=== PATIENT | female | born 1970 | race Caucasian/White ===

== ENCOUNTER 2017-08-10 03:19 | Emergency (ER) | payer OTHER ==
[~2017-08-10] VITALS: Ht 162.6 cm; Wt 60.3 kg
[~2017-08-10 03:19] MED LIST: ARIPIPRAZOLE10 MG PO; AZELASTINE137 MCG/A1 NAS; BUTALB/APAP/CAF1 TAB PO; CIPRO 500MG TA500 MG PO; CLONAZEPAM0.5 MG PO; CYCLOBENZAPRINE10 M2 PO; FLECTOR1 EACH TOP; LIDOCAINE51 TOP; MACROBID 100 M100 MG PO; MULTIVITAMIN1 TAB PO; OXYBUTYNIN CHLO15 MG PO; PHENAZOPYRIDIN200 M1 PO; PYRIDIUM200 M1 PO; PYRIDIUM200 MG PO; SERTRALINE HYD100 MG PO; TIZANIDINE4 MG PO; TRAZODONE100 MG PO; URIBEL1 CAP PO
--- NOTE | 2017-08-10 03:40 | ED CARDIAC/CP/PALPITATIONS ---
History of Present Illness General Chief Complaint: General Adult Stated Complaint: HEART BURN ONE HOUR AGO Source: patient Exam Limitations: no limitations Vital Signs & Intake/Output Vital Signs & Intake/Output Vital Signs Date Time Temp Pulse Resp B/P B/P Pulse O2 O2 Flow FiO2 Mean Ox Delivery Rate 08/10 0333 Room Air 08/10 0329 96.2 104 18 150/86 98 Room Air Allergies Uncoded Allergies: ADHESIVE TAPE (01/06/15) DOGS (UNKNOWN REACTION TO DOGS 07/13/12) Reconcile Medications Aripiprazole 10 MG TABLET 0.5 TAB PO DAILY MENTAL HEALTH (Reported) AZELASTINE HCL (Azelastine HCl) 137 MCG (0.1 %) SPRAY.PUMP 2 SPRAY ALLEN PRN ALLERGIES (Reported) BUTALB/ACETAMINOPHEN/CAFFEINE (Yosjch-Ftsrctuu-Ekxy 50-325-40) 50 MG-325 MG-40 MG TABLET 2 TAB PO PRN MIGRAINES (Reported) Ciprofloxacin (Cipro) 500 MG TAB 1 TAB PO BID UTI Clonazepam 0.5 MG TABLET 1 TAB PO PRN ANXIETY (Reported) CYCLOBENZAPRINE HCL (Cyclobenzaprine HCl) 10 MG TABLET 1 TAB PO DAILY PRN MUSCLE SPASMS (Reported) Diclofenac Epolamine (Flector) 1.3 % PATCH.TD12 1 PAT TOP BID PRN PAIN Lidocaine 5% TDM 1 PATCH TOP PRN PAIN (Reported) MTH/ME BLUE/SOD PHOS/PHEN/HYOS (Uribel Capsule) 118-10-36 CAPSULE 1 CAP PO PRN BLADDER (Reported) Multivitamin (Multiple Vitamins) 1 EACH TABLET 1 TAB PO DAILY SUPPLEMENT ( Reported) Nitrofurantoin Monohyd/M-Cryst (Macrobid 100 MG Capsule) 100 MG CAPSULE 1 CAP PO BID UTI with food Oxybutynin Chloride [address] 1 TAB PO PRN BLADDER (Reported) PHENAZOPYRIDINE HCL (Phenazopyridine HCl) 200 MG TABLET 1 TAB PO PRN PAIN ( Reported) Phenazopyridine HCl (Pyridium) 200 MG TABLET 1 TAB PO TID PRN DYSURIA Phenazopyridine Hydrochlorid2 (Pyridium) 200 MG TAB 1 TAB PO TID PRN UTI SYMPTOMS SERTRALINE HCL (Sertraline Hydrochloride) 100 MG TABLET 1 TAB PO DAILY MENTAL HEALTH (Reported) TIZANIDINE HCL (Tizanidine) 4 MG TABLET 1 TAB PO PRN MUSCLE SPASMS (Reported) TRAZODONE HCL (Trazodone HCl) 100 MG TABLET 1 TAB PO QPM SLEEP (Reported) Triage Note: PT TO TRIAGE C/O MID UPPER ABD PAIN, PT DESCRIBES "HEARTBURN," THAT BEGAN 1HR [employer] AND WOKE UP PT. DENIES N/V/D OR EATING AND DIFFERENT FOODS. HX:GASTRIC SLEEVE. MD DAVILA AT BEDSIDE Triage Nurses Notes Reviewed? yes Onset: Abrupt Duration: minute(s): (60) Timing: single episode today Quality/Severity: severe, burning, pressure Location: substernal Radiation: no radiation Activities at Onset: sleep HPI: Patient presents for evaluation of a burning chest pain with nausea and one episode of mild vomiting that occurred about 60 minutes ago. Patient states she tried Gaviscon without relief. She has had prior episodes of GERD with aspiration. She last ate at about 11:00 to 11:30 last night at a casino. Past surgical history is pertinent for gastric sleeve procedure with frequent vomiting since. Patient states that she feels like she needs to vomit but can' t. She has a sensation that "something's stuck". Past History Travel History Traveled to [place] past 21 day No Medical History Any Pertinent Medical History? see below for history Neurological: migraine Gastrointestinal: BARIATRIC SURGERY 2013 Renal: UTI Psychiatric: depression Surgical History Surgical History: BARIATRIC SURGERY Psychosocial History What is your primary language Yi Tobacco Use: Never used ETOH Use: occasional use Family History Hx Contributory? No Review of Systems Review of Systems Constitutional: Reports: no symptoms. EENTM: Reports: no symptoms. Respiratory: Reports: no symptoms. Cardiovascular: Reports: no symptoms. GI: Reports: see HPI. Genitourinary: Reports: no symptoms. Musculoskeletal: Reports: no symptoms. Skin: Reports: no symptoms. Neurological/Psychological: Reports: no symptoms. Hematologic/Endocrine: Reports: no symptoms. Immunologic/Allergic: Reports: no symptoms. All Other Systems: Reviewed and Negative Physical Exam Physical Exam Cardiovascular: see below Comments: Gen.: Well-nourished, well-developed, no acute respiratory distress. Head: Normocephalic, atraumatic. Eyes: Normal inspection bilaterally Ears: Normal inspection bilaterally Nose: Normal inspection Throat/mouth : Moist mucosa Neck: Supple, full range of motion, no goiter Heart: Regular rate and rhythm, no murmurs rubs or gallops Lungs: Clear to auscultation bilaterally with normal air entry Chest: Anterior chest tenderness to palpation Back: Normal range of motion Abdomen: Soft, mild epigastric tenderness without rebound or guarding, nondistended, normal bowel sounds Extremities: Normal range of motion grossly, equal radial pulses, no cyanosis clubbing or edema Neurologic: Cranial nerves grossly intact, speech is clear Skin: warm and dry Psychiatric: Calm, cooperative, no apparent delusions or hallucinations Core Measures ACS in differential dx? No CVA/TIA Diagnosis No Sepsis Present: No Sepsis Focused Exam Completed? No Progress Differential Diagnosis: acid reflux, esophageal stricture/spasm coronary artery disease, musculoskeletal strain, gastric bypass complication Plan of Care: see d/c instructions Initial ED EKG: none Comments: 08/10/2017 4:33:23 AM Jayde feels well and is virtually asymptomatic at this time. She is agreeable to taking an H2 chris and a GI cocktail until she can follow-up with her GI specialist and the pending esophagogram. Departure Departure Disposition: HOME OR SELF CARE Condition: Stable Clinical Impression Primary Impression: Acid reflux disease Qualifiers: Esophagitis presence: esophagitis presence not specified Qualified Code: K21.9 - Gastro-esophageal reflux disease without esophagitis Referrals: Bobby NARAYANAN,Dustin Gentile (PCP/Family) Additional Instructions: [place] diet. Smaller meals and avoid lying flat after eating. Pepcid as prescribed for stomach acid. GI cocktail as needed for acid reflux. Follow-up with your GI specialist this week for reevaluation. Return if any concerns or sudden worsening. Thank you for choosing the [facility] for your care. It was a pleasure to serve you today. Shoaib Davila M.D. [facility] Departure Forms: Customer Survey General Discharge Information Prescriptions: Current Visit Scripts Famotidine (Pepcid) 1 TAB PO BID #30 TAB Lidocaine HCl (Lidocaine HCl Viscous) 10 ML PO 4 TIMES/DAY #100 ML take with 15ml of maalox mylanta or gaviscon Ondansetron (Zofran Odt) 1 TAB SL Q6 PRN NAUSEA/VOMITING #10 TAB Critical Care Note Critical Care Note Critical Care Time: non-applicable
[2017-08-10] MEDS ORDERED: PEPCID20 M1 PO (04:39)
[2017-08-10] MEDS ORDERED: ZOFRAN ODT4 M1 SL (04:39)
[2017-08-10] MEDS ORDERED: LIDOCAINE HCL V15 ML PO (04:39)
[2017-08-10 05:02] VITALS: BP 150/79
== END 2017-08-10 05:03 ==
LOC: ERH 03:19
DX: K21.9 Gastro-esophageal reflux disease without esophagitis (principal)